=== PATIENT | female | born 1940 | race Caucasian/White ===

== ENCOUNTER → 2018-03-08 06:41 | Outpatient (CLI) | payer MEDICARE, OTHER, SELFPAY ==
[2018-03-08 08:13] LABS: Add Manual Diff / Slide Review NO; Basophils Percent Auto 0.6 % (0-2); Hematocrit 36.7 % (36-46); Hemoglobin 12.6 g/dL (12.0-16.0); Mean Corpuscular HGB Conc 34.4 % (30-36); Mean Corpuscular Hemoglobin 32.6 PG (26-34); Mean Corpuscular Volume 94.7 fL (80-100); Neutrophils Absolute Auto 1900 /uL (3000-5900); Neutrophils Percent Auto 56.4 % (50-75); Platelet Count 178 X10^3/uL (150-400); Red Blood Cell Count 3.87 X10^6/uL (4.0-5.2); Red Cell Distribution Width 12.7 % (11.6-14.8); White Blood Cell Count 3.4 X10^3/uL (4.5-11.0)
[2018-03-08 08:29] LABS: Alanine Aminotransferase 25 IU/L (9-52); Albumin 4.2 g/dL (3.5-5.0); Albumin Globulin Ratio 1.7 (1.0-2.8); Alkaline Phosphatase 34 U/L (38-126); Aspartate Aminotransferase 25 IU/L (14-36); BUN Creatinine Ratio 22.5 (6-22); Bilirubin Total 0.4 mg/dL (0.2-1.3); Blood Urea Nitrogen 18 mg/dL (7-17); Calcium 9.5 mg/dL (8.4-10.2); Carbon Dioxide 29 mmol/L (22-32); Chloride 104 mmol/L (98-107); Cholesterol 149 mg/dL (140-199); Estimated Glomerular Filt Rate > 60.0 mL/min (>60); Globulin 2.5 g/dL (1.7-4.1); Glucose 91 mg/dL (80-110); HDL Cholesterol 65 mg/dL (40-60); HEMOLYSIS < 15 (0-50); LDL Cholesterol Calculated 73 mg/dL (<100); Potassium 4.1 mmol/L (3.4-5.1); Sodium 142 mmol/L (137-145); Total Protein 6.7 g/dL (6.3-8.2); Triglycerides 54 mg/dL (35-150)
[2018-03-08 09:00] LABS: Thyroid Stimulating Hormone 0.82 uIU/mL (0.47-4.68)
== END ==
PROVIDERS: PCP Family Medicine; Visit Provider Family Medicine
DX: E03.9 Hypothyroidism, unspecified (principal); E78.2 Mixed hyperlipidemia
CPT/HCPCS: 36415; 80053; 80061; 84443; 85025

== ENCOUNTER → 2018-03-11 10:55 | Outpatient (CLI) | payer MEDICARE, OTHER, SELFPAY ==
--- NOTE | 2018-03-11 | DI.MG.S_ITS ---
BILATERAL DIGITAL SCREENING MAMMOGRAM 3D/2D WITH CAD: 03/11/2018 CLINICAL: Routine screening. Comparison is made to exams dated: 02/18/2017 mammogram, 02/11/2016 mammogram, and 01/03/2015 mammogram - [facility]. The tissue of both breasts is heterogeneously dense. This may lower the sensitivity of mammography. Current study was also evaluated with a Computer Aided Detection (CAD) system. No significant masses, calcifications, or other findings are seen in either breast. There has been no significant interval change. IMPRESSION: NEGATIVE There is no mammographic evidence of malignancy. A 1 year screening mammogram is recommended. This exam was interpreted at Station ID: [id number]. NOTE: For mammograms, a report in lay terms will be sent to the patient. Approximately 15% of breast malignancies will not be visualized mammographically. In the management of a palpable breast mass, a negative mammogram must not discourage biopsy of a clinically suspicious lesion. Electronically Signed By: Paras henley/dionna:03/11/2018 11:56:26 letter sent: Normal Exam ACR BI-RADS Category 1: Negative [id number]
== END ==
PROVIDERS: PCP Family Medicine; Visit Provider Family Medicine
DX: Z12.31 Encounter for screening mammogram for malignant neoplasm of breast (principal)
CPT/HCPCS: 77063; 77067

== ENCOUNTER → 2018-03-25 17:24 | Outpatient (CLI) | payer MEDICARE, OTHER, SELFPAY ==
--- NOTE | 2018-03-25 17:28 | DI.MRI.S_ITS ---
PROCEDURE: MR HEAD/BRAIN WO CON INDICATIONS: memory loss TECHNIQUE: Non-contrast axial T1 spin echo, axial T2 fast spin echo, sagittal and axial FLAIR, coronal T2 fast spin echo, axial gradient echo, axial diffusion and ADC through the brain. COMPARISON: [facility], MR, BRAIN WITHOUT CONTRAST, 02/05/2012, 15:39. FINDINGS: Image quality: Excellent. CSF spaces: Ventricles appear symmetric in size and shape. Basal cisterns are patent. No extra-axial fluid collections. Brain: No intracranial bleeds or mass effects. There is cerebral volume loss for age. There are periventricular and deep white matter chronic small vessel ischemic changes. Brainstem appears normal. Diffusion-weighted images show no acute ischemic insults. No chronic ischemic insults. Normal intravascular flow voids are present. Skull and face: Calvarial bone marrow is normal in signal. Orbits are normal. Sinuses: Sinuses demonstrate minimal pansinus mucosal thickening. IMPRESSION: 1. No acute intracranial process. 2. Mild to moderate atrophy and chronic microvascular ischemic changes. Dictated by: Melissa Box M.D. on 03/28/2018 at 9:11 Approved by: Melissa Box M.D. on 03/28/2018 at 9:42
== END ==
PROVIDERS: PCP Family Medicine; Visit Provider Family Medicine
DX: R41.3 Other amnesia (principal); G31.9 Degenerative disease of nervous system, unspecified
CPT/HCPCS: 70551

== ENCOUNTER → 2018-05-04 15:52 | Outpatient (CLI) | payer MEDICARE, OTHER, SELFPAY | PROVIDERS: PCP Family Medicine; Visit Provider Obstetrics & Gynecology | DX: R33.9 Retention of urine, unspecified (principal) | CPT/HCPCS: 87086 ==

== ENCOUNTER → 2018-09-15 12:55 | Outpatient (CLI) | payer MEDICARE, OTHER, SELFPAY ==
[2018-09-17 15:03] LABS: Herpes Simplex Virus 1 IGG AB 2.17 index (< 0.90)
[2018-09-19 15:31] LABS: HSV 1 IgM Screen Negative (Negative); HSV 2 IgM Screen Negative (Negative)
== END ==
PROVIDERS: PCP Family Medicine; Visit Provider Obstetrics & Gynecology
DX: N90.89 Other specified noninflammatory disorders of vulva and perineum (principal); R32 Unspecified urinary incontinence
CPT/HCPCS: 36415; 86694; 86695; 86696; 87077; 87086; 87186

== ENCOUNTER → 2018-10-28 12:21 | Outpatient (CLI) | payer MEDICARE, OTHER, SELFPAY ==
[2018-10-28 16:17] LABS: Thyroid Stimulating Hormone 0.59 uIU/mL (0.47-4.68)
== END ==
PROVIDERS: PCP Family Medicine; Visit Provider Family Medicine
DX: E03.9 Hypothyroidism, unspecified (principal)
CPT/HCPCS: 36415; 84443

== ENCOUNTER → 2019-03-06 10:26 | Outpatient (CLI) | payer MEDICARE, OTHER, SELFPAY ==
[2019-03-06 11:06] LABS: Appearance Urine UA CLEAR; Bilirubin Urine UA NEGATIVE (NEGATIVE); Color Urine UA YELLOW; Glucose Urine UA NEGATIVE (Negative); Ketones Urine UA NEGATIVE (NEGATIVE); Leukocyte Esterase Urine UA TRACE (NEGATIVE); Nitrite Urine UA NEGATIVE (Negative); Occult Blood Urine UA TRACE-INTACT (Negative); Protein Urine UA NEGATIVE (Negative); Specific Gravity Urine UA <=1.005 (1.000-1.035); Urobilinogen Urine UA 0.2 E.U./dL (0.2)
[2019-03-06 11:51] LABS: Bacteria Urine Occasional (0-1); Culture Indicated Urine Specimen Cultured; RBC Urine 0-1/HPF (0-5/HPF); Squamous Epithelial Cell Urine 1-5 /HPF (0-5/HPF); WBC Urine 1-5/HPF (0-5/HPF)
== END ==
PROVIDERS: PCP Family Medicine; Visit Provider Obstetrics & Gynecology
DX: N39.0 Urinary tract infection, site not specified (principal); R30.9 Painful micturition, unspecified
CPT/HCPCS: 81001; 87086

== ENCOUNTER → 2019-03-14 16:45 | Outpatient (CLI) | payer MEDICARE, OTHER, SELFPAY ==
--- NOTE | 2019-03-14 | DI.MG.S_ITS ---
BILATERAL DIGITAL SCREENING MAMMOGRAM 3D/2D WITH CAD: 03/14/2019 CLINICAL: Routine screening. Comparison is made to exams dated: 03/11/2018 mammogram, 02/18/2017 mammogram, and 02/11/2016 mammogram - [facility]. The tissue of both breasts is heterogeneously dense. This may lower the sensitivity of mammography. Current study was also evaluated with a Computer Aided Detection (CAD) system. No significant masses, calcifications, or other findings are seen in either breast. There has been no significant interval change. IMPRESSION: NEGATIVE There is no mammographic evidence of malignancy. A 1 year screening mammogram is recommended. This exam was interpreted at Station ID: [id number]. NOTE: For mammograms, a report in lay terms will be sent to the patient. Approximately 15% of breast malignancies will not be visualized mammographically. In the management of a palpable breast mass, a negative mammogram must not discourage biopsy of a clinically suspicious lesion. Electronically Signed By: Brian figueroa/dionna:03/15/2019 08:24:22 letter sent: Normal Exam ACR BI-RADS Category 1: Negative [id number]
== END ==
PROVIDERS: PCP Family Medicine; Visit Provider Family Medicine
DX: Z12.31 Encounter for screening mammogram for malignant neoplasm of breast (principal)
CPT/HCPCS: 77063; 77067

== ENCOUNTER → 2019-04-24 06:59 | Outpatient (CLI) | payer MEDICARE, OTHER, SELFPAY ==
[2019-04-24 07:36] LABS: Add Manual Diff / Slide Review NO; Basophils Absolute Auto 0 /uL (0-100); Basophils Percent Auto 0.6 % (0-2); Eosinophils Absolute Auto 100 /uL (0-450); Eosinophils Percent Auto 1.8 % (2-4); Hematocrit 41.4 % (36-46); Hemoglobin 14.1 g/dL (12.0-16.0); Lymphocytes Absolute Auto 1100 /uL (1100-4500); Lymphocytes Percent Auto 26.7 % (25-40); Mean Corpuscular Hemoglobin 32.5 PG (26-34); Mean Corpuscular Volume 95.7 fL (80-100); Monocytes Absolute Auto 400 /uL (0-900); Monocytes Percent Auto 9.2 % (3-14); Neutrophils Absolute Auto 2500 /uL (1500-7000); Neutrophils Percent Auto 61.7 % (50-75); Platelet Count 179 X10^3/uL (150-400); Red Blood Cell Count 4.33 X10^6/uL (4.0-5.2)
[2019-04-24 07:49] LABS: Alanine Aminotransferase 19 IU/L (<35); Albumin 4.4 g/dL (3.5-5.0); Albumin Globulin Ratio 1.5 (1.0-2.8); Alkaline Phosphatase 49 U/L (38-126); Aspartate Aminotransferase 28 IU/L (14-36); BUN Creatinine Ratio 28.6 (6-22); Bilirubin Total 0.9 mg/dL (0.2-1.3); Blood Urea Nitrogen 20 mg/dL (7-17); Calcium 9.8 mg/dL (8.4-10.2); Carbon Dioxide 31 mmol/L (22-32); Chloride 101 mmol/L (98-107); Cholesterol 215 mg/dL (140-199); Estimated Glomerular Filt Rate > 60.0 mL/min (>60); Globulin 2.9 g/dL (1.7-4.1); Glucose 98 mg/dL (80-110); HDL Cholesterol 74 mg/dL (40-60); HEMOLYSIS < 15 (0-50); LDL Cholesterol Calculated 131 mg/dL (<100); Potassium 4.2 mmol/L (3.4-5.1); Sodium 137 mmol/L (137-145); Total Protein 7.3 g/dL (6.3-8.2); Triglycerides 52 mg/dL (35-150)
== END ==
PROVIDERS: PCP Family Medicine; Visit Provider Family Medicine
DX: Z00.00 Encounter for general adult medical examination without abnormal findings (principal); E78.2 Mixed hyperlipidemia; Z13.220 Encounter for screening for lipoid disorders
CPT/HCPCS: 36415; 80053; 80061; 85025

== ENCOUNTER → 2019-05-18 13:57 | Outpatient (CLI) | payer MEDICARE, OTHER, SELFPAY | PROVIDERS: PCP Family Medicine; Visit Provider Family Medicine | DX: M81.0 Age-related osteoporosis without current pathological fracture (principal); Z78.0 Asymptomatic menopausal state; E07.9 Disorder of thyroid, unspecified; Z82.62 Family history of osteoporosis | CPT/HCPCS: 77080 ==

== ENCOUNTER 2019-05-25 09:44 | Emergency (ER) | payer MEDICARE, OTHER, SELFPAY ==
[2019-05-25] VITALS (14 sets, daily range): BP systolic 111–155; BP diastolic 60–85; PULSE 22–86; RESP 15–23; TEMP 36.2; O2SAT 98–100; BMI 19.1
--- NOTE | 2019-05-25 09:51 | DI.RAD.S_ITS ---
PROCEDURE: XR CHEST 1V INDICATIONS: chest pain TECHNIQUE: One view of the chest was acquired. COMPARISON: [facility], , CHEST 2 VIEW, 09/08/2016, 12:47. FINDINGS: Surgical changes and devices: None. Lungs and pleura: Lungs are clear. No pleural effusions or pneumothorax. Mediastinum: Mediastinal contours appear normal. Heart size is normal. Bones and chest wall: No suspicious bony lesions. Overlying soft tissues appear unremarkable. IMPRESSION: No acute cardiopulmonary disease process. Dictated by: Eunice Gutierrez MD, PhD on 05/25/2019 at 11:03 Approved by: Eunice Gutierrez MD, PhD on 05/25/2019 at 11:04
[2019-05-25 10:05] LABS: Add Manual Diff / Slide Review NO; Basophils Absolute Auto 0 /uL (0-100); Basophils Percent Auto 0.6 % (0-2); Eosinophils Absolute Auto 0 /uL (0-450); Eosinophils Percent Auto 0.9 % (2-4); Hematocrit 42.7 % (36-46); Hemoglobin 14.5 g/dL (12.0-16.0); Lymphocytes Absolute Auto 1200 /uL (1100-4500); Lymphocytes Percent Auto 23.4 % (25-40); Mean Corpuscular Hemoglobin 32.4 PG (26-34); Mean Corpuscular Volume 95.1 fL (80-100); Monocytes Absolute Auto 400 /uL (0-900); Monocytes Percent Auto 8.5 % (3-14); Neutrophils Absolute Auto 3500 /uL (1500-7000); Neutrophils Percent Auto 66.6 % (50-75); Platelet Count 193 X10^3/uL (150-400); Red Blood Cell Count 4.49 X10^6/uL (4.0-5.2); Red Cell Distribution Width 12.4 % (11.6-14.8); White Blood Cell Count 5.2 X10^3/uL (4.5-11.0)
[2019-05-25 10:13] LABS: Prothrombin Time 11.3 SECONDS (10.1-12.7)
[2019-05-25 10:15] LABS: PTT Partial Thromboplastin Tim 32 SECONDS (26.4-36.2)
[2019-05-25 10:17] LABS: Alanine Aminotransferase 19 IU/L (<35); Albumin 4.8 g/dL (3.5-5.0); Albumin Globulin Ratio 1.4 (1.0-2.8); Alkaline Phosphatase 57 U/L (38-126); Aspartate Aminotransferase 32 IU/L (14-36); BUN Creatinine Ratio 21.3 (6-22); Bilirubin Total 0.9 mg/dL (0.2-1.3); Blood Urea Nitrogen 17 mg/dL (7-17); Carbon Dioxide 28 mmol/L (22-32); Chloride 101 mmol/L (98-107); Creatine Kinase 62 U/L (30-135); Estimated Glomerular Filt Rate > 60.0 mL/min (>60); Globulin 3.5 g/dL (1.7-4.1); Glucose 94 mg/dL (80-110); HEMOLYSIS 22 (0-50); Lipase 197 U/L (23-300); Potassium 3.8 mmol/L (3.4-5.1); Sodium 138 mmol/L (137-145); Total Protein 8.3 g/dL (6.3-8.2)
--- NOTE | 2019-05-25 10:17 | PC.NURSE ---
pt states, she had 2nd shot of shingles last week, then developed feeling tired and with left chest tightness and dull . denies other sxs. denies shortness of breath,nausea or vomiting,coughing,uti sxs,trauma.
[2019-05-25 10:28] LABS: Troponin I < 0.012 ng/mL (0.01-0.034)
--- NOTE | 2019-05-25 10:54 | ED_ITS ---
HPI - Chest Pain General Chief Complaint: Chest Pain Stated Complaint: Chest pain. Time Seen by Provider: 05/25/19 09:53 Source: patient Mode of arrival: Ambulatory Limitations: no limitations History of Present Illness HPI narrative: Patient comes emergency department complaining of chest pain for the last 2-3 days. She states it is left-sided and starts and stops randomly. Sometimes it lasts for just a few minutes and other times it lasts for several hours. Patient states that today, she has had a dull sense of chest pain since she woke up around 6:00 a.m. this morning. Patient states that she does not h ave any cardiac history. She has a history of hyperlipidemia but denies diabetes or hypertension. Patient states that she has not been ill with anything recently. No cough or fever. Patient states that she shoveled snow yesterday and did not have any problem with chest pain. She states nothing really makes it better or worse. She states that the pain is dull and low level, but occasionally, she feels a sharp pain in the same area. Patient states that she does have radiation of the discomfort into her neck and occasionally down into her left groin, but that this only lasts for a quick se cond. No other complaints at this time. Related Data Home Medications Medication Instructions Recorded Confirmed cyanocobalamin (vitamin B-12) 500 mcg PO DAILY #0 02/20/16 05/25/19 [Vitamin B-12] Hair,Skin and Nails 2 ea PO DAILY 05/25/19 05/25/19 Turmeric Curcumin 1 cap PO DAILY 05/25/19 05/25/19 calcitonin (salmon) 1 spray INTRANASAL (ALT) DAILY 05/25/19 05/25/19 calcium carbonate [Calcium 600] 600 mg PO DAILY 05/25/19 05/25/19 estradiol 10 mcg VAGINAL 2XW 05/25/19 05/25/19 folic acid 0.8 mg PO DAILY 05/25/19 05/25/19 omega [id number] oil [Fish Oil] 1 cap PO BID 05/25/19 05/25/19 oxybutynin chloride 2.5 mg PO BID 05/25/19 05/25/19 psyllium husk [Metamucil] 0.8 g PO DAILY 05/25/19 05/25/19 raloxifene 60 mg PO DAILY 05/25/19 05/25/19 simvastatin 10 mg PO BEDTIME 05/25/19 05/25/19 Previous Rx's Medication Instructions Recorded levothyroxine 50 mcg tablet 50 mcg PO QAM #90 tab 10/31/18 tolterodine 4 mg capsule,extended 4 mg PO DAILY #90 cap 03/08/19 release 24 hr Allergies Allergy/AdvReac Type Severity Reaction Status Date / Time codeine [CODEINE] Allergy Mild Vomiting Verified 05/25/19 09:52 Review of Systems Constitutional Constitutional: Denies chills, Denies fatigue, Denies fever(s), Denies frequent falls, Denies lethargy and Denies weakness Eyes Eyes: Denies change in vision, Denies eye discharge, Denies irritation and Denies loss of vision ENT Ears, Nose, Mouth, and Throat: Denies change in voice, Denies dizziness, Denies neck pain, Denies sore throat and Denies throat swelling Cardiovascular Cardiovascular: Reports chest pain, Denies irregular heart rhythm, Denies lightheadedness, Denies palpitations, Denies dyspnea, Denies dyspnea on exertion and Denies orthopnea Respiratory Respiratory: Denies cough, Denies dyspnea, Denies dyspnea on exertion and Denies wheezing Gastrointestinal Gastrointestinal: Denies abdominal pain, Denies change in bowel habits, Denies diarrhea, Denies nausea and Denies vomiting Genitourinary Genitourinary: Denies hematuria, Denies flank pain, Denies urinary incontinence and Denies urinary urgency Musculoskeletal Musculoskeletal: Denies back pain, Denies muscle weakness, Denies neck pain, Denies numbness and Denies tingling Integumentary/Breasts Skin/Breast: Denies pruritus, Denies erythema, Denies rash and Denies wounds Neurologic Neurologic: Denies behavioral changes, Denies confusion, Denies dizziness, Denies frequent falls, Denies loss of vision, Denies numbness, Denies tingling and Denies weakness Psychiatric Psychiatric: Denies anxiety, Denies behavioral changes, Denies confusion, Denies depression, Denies homicidal ideation and Denies suicidal ideation Endocrine Endocrine: Denies fatigue, Denies flushing and Denies palpitations Hematologic/Lymphatic Hematologic/Lymphatic: Denies easy bruising Allergic/Immunologic Allergic/Immunologic: Denies urticaria, Denies throat swelling and Denies wheezing Patient History Medical History Broken arm (Resolved ~2001) Chicken pox (Resolved) Foot pain (Chronic 2010) Measles (Resolved) Mumps (Resolved) Osteopenia (Chronic 2001) Osteoporosis (Chronic 2001) Shoulder pain (Chronic 2013) Surgical History History of surgery on arm (Resolved 2010) Status post breast biopsy (Resolved 1986) Family History Father Heart disease Mother No problems noted. Brother No problems noted. Social History Smoking Status: Never smoker Smoking Status: Never smoker Exam Initial Vital Signs Initial Vital Signs: Vital Signs Temperature 97.1 F L 05/25/19 09:52 Pulse Rate 86 05/25/19 09:52 Respiratory Rate 15 05/25/19 09:52 Blood Pressure 155/85 H 05/25/19 09:52 Pulse Oximetry 100 05/25/19 09:52 Const General: cooperative and well developed Nutritional Appearance: well nourished [facility] Head: normocephalic and atraumatic Ears: external ears normal Nose: external nose normal and No nasal discharge Face and sinus: face symmetric and No dry mucous membranes Mouth: oral mucosae normal and moist mucous membranes Teeth and gingiva: dentition normal Eyes General: appearance normal, both eyes and all related structures Eyelids: eyelids normal Conjunctivae: conjunctivae normal Sclera: sclerae normal Pupils: PERRL EOM: EOM intact bilaterally Neck Neck: normal visual inspection, trachea midline, No lymphadenopathy, No midline deformity and No JVD Lymphatic: No lymphedema Chest Chest: normal inspection of the chest Resp Effort & Inspection: normal respiratory effort, able to speak in complete sentences, no respiratory distress and no use of accessory muscles Auscultation: clear to auscultation bilaterally, no rales, no rhonchi and no wheezes Cardio Rate: regular rate Rhythm: regular rhythm Heart Sounds: no click, no gallops, no murmurs and no rubs Pulses: normal peripheral pulses GI Inspection: non-distended Palpation: soft, no hepatosplenomegaly, No guarding, No pulsatile mass and No tender Back/Spine/Pelvis Back: No CVA tenderness Cervical Spine: cervical ROM normal and No pain with cervical ROM Thoracic/Lumbar Spine: thoracic and lumbar spine normal to inspection Skin General: no rashes or lesions noted, No jaundice and No petechiae Neuro General: alert, oriented x3, gait normal and no focal motor deficits Speech: speech normal Extrem General: full ROM, no clubbing, cyanosis or edema, no pedal edema and no calf tenderness Psych Appearance: well kempt Mental Status: mental status grossly normal Attitude: cooperative Thought Content: normal and suicidality Judgment: judgment good Course Course Course Narrative: Patient was worked up with labs, EKG, and chest x-ray, all of which were unremarkable. Patient's repeat troponin was also negative. I felt the patient was stable for discharge home. We've discussed home management of the symptoms, as well as the need for follow-up and potentially, for further evaluation of the chest discomfort with stress test. We've discussed the usual indications for return. Orders Ordered: ED Orders 05/25/19 13:45 Troponin I Stat Discontinued Medications Aspirin (Aspirin Ec) 325 mg PO NOW ONE Stop: 05/25/19 11:00 Last Admin: 05/25/19 11:09 Dose: 325 mg Documented by: JUSTIN Vital Signs Vital signs: Vital Signs - 8 hr 05/25/19 12:00 05/25/19 12:30 05/25/19 13:00 Pulse Rate 73 71 75 Respiratory Rate 21 23 Blood Pressure [Left Arm] Pulse Oximetry 100 100 100 05/25/19 13:18 05/25/19 13:30 05/25/19 13:39 Pulse Rate 69 73 70 Respiratory Rate 18 23 Blood Pressure [Left Arm] Pulse Oximetry 99 99 100 05/25/19 13:40 05/25/19 14:15 05/25/19 14:25 Pulse Rate 71 72 Respiratory Rate 23 21 Blood Pressure [Left Arm] 143/81 H Pulse Oximetry 100 100 MDM - Chest Pain Medical Records Data Attestation: I reviewed the patient's medical records. Lab Data Attestation: I reviewed the patient's lab results. Result diagrams: 05/25/19 09:58 05/25/19 09:58 Labs: Lab Results 05/25/19 05/25/19 05/25/19 Range/Units 09:58 09:58 09:58 WBC 5.2 (4.5-11.0) X10^3/uL RBC 4.49 (4.0-5.2) X10^6/uL Hgb 14.5 (12.0-16.0) g/dL Hct 42.7 (36-46) % MCV 95.1 (80-100) fL MCH 32.4 (26-34) PG MCHC 34.0 (30-36) % RDW 12.4 (11.6-14.8) % Plt Count 193 (150-400) X10^3/uL Neut % (Auto) 66.6 (50-75) % Lymph % (Auto) 23.4 L (25-40) % Harlan % (Auto) 8.5 (3-14) % Eos % (Auto) 0.9 L (2-4) % Baso % (Auto) 0.6 (0-2) % Neut # (Auto) 3500 (6846-9115) /uL Lymph # (Auto) 1200 (5494-1502) /uL Harlan # (Auto) 400 (0-900) /uL Eos # (Auto) 0 (0-450) /uL Baso # (Auto) 0 (0-100) /uL PT 11.3 (10.1-12.7) SECONDS INR 1.0 (0.9-1.3) APTT 32 (26.4-36.2) SECONDS Sodium 138 (137-145) mmol/L Potassium 3.8 (3.4-5.1) mmol/L Chloride 101 (98-107) mmol/L Carbon Dioxide 28 (22-32) mmol/L BUN 17 (7-17) mg/dL Creatinine 0.80 (0.52-1.04) mg/dL Estimated GFR > 60.0 (>60) mL/min BUN/Creatinine Ratio 21.3 (6-22) Glucose 94 (80-110) mg/dL Calcium 10.0 (8.4-10.2) mg/dL Total Bilirubin 0.9 (0.2-1.3) mg/dL AST 32 (14-36) IU/L ALT 19 (<35) IU/L Alkaline Phosphatase 57 (38-126) U/L Total Creatine Kinase 62 (30-135) U/L CK-MB (CK-2) TNP CK-MB (CK-2) Rel Index TNP Troponin I < 0.012 (0.01-0.034) ng/mL Total Protein 8.3 H (6.3-8.2) g/dL Albumin 4.8 (3.5-5.0) g/dL Globulin 3.5 (1.7-4.1) g/dL Albumin/Globulin Ratio 1.4 (1.0-2.8) Lipase 197 (23-300) U/L 05/25/19 Range/Units 13:45 WBC (4.5-11.0) X10^3/uL RBC (4.0-5.2) X10^6/uL Hgb (12.0-16.0) g/dL Hct (36-46) % MCV (80-100) fL MCH (26-34) PG MCHC (30-36) % RDW (11.6-14.8) % Plt Count (150-400) X10^3/uL Neut % (Auto) (50-75) % Lymph % (Auto) (25-40) % Harlan % (Auto) (3-14) % Eos % (Auto) (2-4) % Baso % (Auto) (0-2) % Neut # (Auto) (0366-1565) /uL Lymph # (Auto) (3044-4002) /uL Harlan # (Auto) (0-900) /uL Eos # (Auto) (0-450) /uL Baso # (Auto) (0-100) /uL PT (10.1-12.7) SECONDS INR (0.9-1.3) APTT (26.4-36.2) SECONDS Sodium (137-145) mmol/L Potassium (3.4-5.1) mmol/L Chloride (98-107) mmol/L Carbon Dioxide (22-32) mmol/L BUN (7-17) mg/dL Creatinine (0.52-1.04) mg/dL Estimated GFR (>60) mL/min BUN/Creatinine Ratio (6-22) Glucose (80-110) mg/dL Calcium (8.4-10.2) mg/dL Total Bilirubin (0.2-1.3) mg/dL AST (14-36) IU/L ALT (<35) IU/L Alkaline Phosphatase (38-126) U/L Total Creatine Kinase (30-135) U/L CK-MB (CK-2) CK-MB (CK-2) Rel Index Troponin I < 0.012 (0.01-0.034) ng/mL Total Protein (6.3-8.2) g/dL Albumin (3.5-5.0) g/dL Globulin (1.7-4.1) g/dL Albumin/Globulin Ratio (1.0-2.8) Lipase (23-300) U/L Imaging Data Chest x-ray: Radiologist's Impression: PROCEDURE: XR CHEST 1V INDICATIONS: chest pain TECHNIQUE: One view of the chest was acquired. COMPARISON: [facility], , CHEST 2 VIEW, 09/08/2016, 12:47. FINDINGS: Surgical changes and devices: None. Lungs and pleura: Lungs are clear. No pleural effusions or pneumothorax. Mediastinum: Mediastinal contours appear normal. Heart size is normal. Bones and chest wall: No suspicious bony lesions. Overlying soft tissues appear unremarkable. IMPRESSION: No acute cardiopulmonary disease process. Dictated by: Eunice Gutierrez MD, PhD on 05/25/2019 at 11:03 Approved by: Eunice Gutierrez MD, PhD on 05/25/2019 at 11:04 ECG Data Attestation: I personally reviewed and interpreted this ECG as follows: (See below) Interpretation: Twelve lead EKG performed May 25, 2019 at 9:54 a.m., as follows: Regular ventricular rhythm with a rate of 77 beats per minute [place] interval 175 millisecond QRS duration 82 millisecond QTC interval [address] T wave changes Interpretation: Normal sinus rhythm; possible left atrial enlargement; possible right ventricular conduction delay; septal myocardial infarction of indeterminate age; no signs of acute ischemia; abnormal EKG as interpreted by ED MD. Discharge Plan Departure Patient Disposition: Home Clinical Impression: Chest pain Qualifiers: Chest pain type: unspecified Qualified Code(s): R07.9 - Chest pain, unspecified Discharge Date/Time: 05/25/19 14:56 Instructions: DI for Chest Pain Activity Restrictions/Additional Instructions: Your workup, including labs with 2 sets of cardiac enzymes, is all negative. Your EKG does not show evidence of an acute heart attack. At this point in time, there is no evidence of an emergent cause of her chest pain. However, is very important that you follow-up with your doctor to discuss whether you need to have a stress test done. Prescriptions: No Action cyanocobalamin (vitamin B-12) [Vitamin B-12] 500 MCG tablet 500 mcg PO DAILY Qty: 0 RF: 0 levothyroxine 50 mcg tablet 50 mcg PO QAM Qty: 90 RF: 3 tolterodine 4 mg capsule,extended release 24hr 4 mg PO DAILY Qty: 90 RF: 1 calcium carbonate [Calcium 600] 600 mg calcium (1,500 mg) Tablet 600 mg PO DAILY RF: 0 folic acid 800 mcg Tablet 0.8 mg PO DAILY RF: 0 omega 3-mhp-niq-fish oil [Fish Oil] 1,000 mg (120 mg-180 mg) Capsule 1 cap PO BID RF: 0 psyllium husk [Metamucil] 0.4 gram Capsule 0.8 g PO DAILY RF: 0 Hair,Skin and Nails 2 ea PO DAILY RF: 0 Turmeric Curcumin 1 cap PO DAILY RF: 0 calcitonin (salmon) 200 unit/actuation spray,non-aerosol 1 spray intranasal (ALT) DAILY RF: 0 simvastatin 20 mg tablet 10 mg PO BEDTIME RF: 0 raloxifene 60 mg tablet 60 mg PO DAILY RF: 0 oxybutynin chloride 5 mg tablet 2.5 mg PO BID RF: 0 estradiol 10 mcg tablet 10 mcg vaginal 2XW RF: 0 Referrals: Deyvi Alejandro MD [Primary Care Provider] -
[2019-05-25] MEDS: ASPIRIN EC 325 MG TABLET PO (11:09)
[2019-05-25 14:19] LABS: Troponin I < 0.012 ng/mL (0.01-0.034)
== END 2019-05-25 14:56 | disposition home or self-care (01) ==
PROVIDERS: Emergency Provider Emergency Medicine; PCP Family Medicine
DX: R07.9 Chest pain, unspecified (principal)
CPT/HCPCS: 36415; 71045; 80053; 82550; 83690; 84484; 85025; 85610; 85730; 93005; 99284; 99285

== ENCOUNTER → 2019-06-20 09:42 | Outpatient (CLI) | payer MEDICARE, OTHER, SELFPAY ==
--- NOTE | 2019-06-20 09:46 | DI.CT.S_ITS ---
PROCEDURE: CT ABDOMEN PELVIS W CON INDICATIONS: weight loss TECHNIQUE: After the administration of oral and intravenous contrast, 5 mm thick sections acquired from the diaphragms to the symphysis. 5 mm thick coronal and sagittal reformats were performed. For radiation dose reduction, the following was used: automated exposure control, adjustment of mA and/or kV according to patient size. COMPARISON: None. FINDINGS: Image quality: Excellent. ABDOMEN: Lung bases: Mild bibasilar atelectasis. Heart size is normal. Solid organs: Liver is normal in size and enhancement. Gallbladder is unremarkable. Biliary system is non-dilated. There is a hypodense, irregular mass measuring 1.0 x 1.7 cm within the head neck junction of the pancreas with suggestion of communication with the main pancreatic duct. There is also a 7 mm x 10 mm irregular hypodense mass within the tail the pancreas which also demonstrates possible communication with the main pancreatic duct. The main pancreatic duct is nondilated. Pancreas otherwise enhances homogeneously. Spleen is normal in size and enhancement. No adrenal nodules. Kidneys are normal in size and enhancement, without hydronephrosis. Peritoneum and bowel: There is a moderate amount of fecal material noted throughout the visualized colon. Stomach, small bowel, and colon loops are normal in caliber and wall thickness. No free fluid or air. Nodes and vessels: No retroperitoneal or mesenteric adenopathy. Aorta and inferior vena cava are normal in caliber. Scattered atherosclerotic calcifications of the abdominal aorta and iliac vessels without aneurysmal dilatation. Miscellaneous: No ventral hernias. PELVIS: Genitourinary: Bladder wall thickness is normal. Reproductive organs appear unremarkable as visualized. Miscellaneous: No inguinal hernias or adenopathy. Bones: No acute vertebral body compression fractures. Multilevel spondylitic changes of the lumbar spine with grade 1 anterolisthesis of L4 and L5 secondary to L4 pars defects. Moderate disc space loss and degenerative endplate changes at T11-T12. Degenerative changes of the bilateral hip. There is diffuse osteopenia. Focal sclerotic lesions noted at the anterior L5 vertebral body, posterior L3 vertebral body, posterior right sacral ala, and the distal sacrum. No associated cortical disruption, periosteal reaction, or overlying soft tissue mass. These are likely bone islands. Otherwise, no suspicious osseous lesions. IMPRESSION: 1. There are 2 hypodense mass lesions identified within the pancreas measuring approximately 17 mm near the head neck junction and 10 mm in the pancreatic tail with apparent communication with the main, nondilated pancreatic duct. 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 Recommend further characterization with multiphase MRI of the abdomen (pancreatic mass protocol). 2. A few sclerotic foci identified in the lumbar spine and sacrum likely representing benign bone islands. Attention to these findings on followup imaging can be made. 3. Multilevel spondylosis of the lower thoracic and lumbar spine. 4. Grade 1 anterolisthesis of L4 on L5 secondary to pars defect. Dictated by: Brian Asif M.D. on 06/20/2019 at 18:40 Approved by: Brian Asif M.D. on 06/20/2019 at 19:09
[2019-06-20 10:20] LABS: BUN Creatinine Ratio 23.8 (6-22); Blood Urea Nitrogen 19 mg/dL (7-17); Estimated Glomerular Filt Rate > 60.0 mL/min (>60)
== END ==
PROVIDERS: PCP Family Medicine; Referring Provider Family Medicine; Visit Provider Family Medicine
DX: Z01.812 Encounter for preprocedural laboratory examination (principal); R63.4 Abnormal weight loss; J98.11 Atelectasis; I70.0 Atherosclerosis of aorta; M47.816 Spondylosis without myelopathy or radiculopathy, lumbar region; M43.16 Spondylolisthesis, lumbar region; M47.814 Spondylosis without myelopathy or radiculopathy, thoracic region; K86.9 Disease of pancreas, unspecified
CPT/HCPCS: 36415; 74177; 82565; 84520; Q9967

== ENCOUNTER → 2019-06-28 15:48 | Outpatient (CLI) | payer MEDICARE, OTHER, SELFPAY ==
--- NOTE | 2019-06-28 15:50 | DI.MRI.S_ITS ---
PROCEDURE: MR ABDOMEN WO/W CON INDICATIONS: pancreatic mass TECHNIQUE: Coronal HASTE, axial 2D FLASH in- and [id number]; axial breath-hold T2 FSE with fat saturation from the hepatic dome to the iliac crests. Oblique coronal thin-slice and radial thick slab HASTE through the biliary system. Dynamic axial VIBE during administration of contrast. Post-contrast coronal VIBE or 2D FLASH with fat saturation from the hepatic dome to the iliac crests. Optional diffusion weighted imaging and ADC may be performed. COMPARISON: [facility], CT, CT ABDOMEN PELVIS W CON, 06/20/2019, 11:00. FINDINGS: Image quality: Excellent. Pancreas and biliary system: No biliary distention is found. No pancreatic ductal distention is identified. Within the pancreatic head/neck junction corresponding to the prior CT scanning there is a nonenhancing ovoid structure that shows low T1 and elevated T2 values, measuring 7 mm AP and 1.1 cm transverse (best visualized on post contrast imaging series 18 image 57 and on fluid sensitive T2 axial imaging series 5 image 21. A smaller and more angular similar signal intensity structure is seen at the pancreatic tail, superimposed upon by the expected position of the pancreatic duct in that area. This measures approximately 7 mm in maximal dimension, and is seen on series 18 image 47 postcontrast imaging, and also T2 imaging series 5 image 21. Solid organs: Liver is normal in size and enhancement. Gallbladder appears normal. Spleen is normal in size and enhancement. No adrenal nodules. Kidneys are normal in size and enhancement, without hydronephrosis. Nodes and vessels: No retroperitoneal or mesenteric adenopathy by size criteria. Aorta and inferior vena cava are normal in size. Bowel and peritoneum: Unenhanced bowel loops are normal in caliber throughout. No free fluid. Lung bases: No basal pleural effusions. Heart size is normal. Bones and soft tissues: No ventral hernias. Bone marrow is normal in overall signal. IMPRESSION: The 2 structures within the pancreatic parenchyma identified by recent CT scanning at the head/neck junction and within the pancreatic tail each have fluid rich signal characteristics without contrast enhancement. These may represent sequela of intraductal papillary mucinous neoplasm, side branch type, and followup by MR scanning in 6 months is recommended. Through the liver parenchyma no metastatic disease is suspected. No adenopathy is found. No marrow space lesion is identified. Dictated by: Atnoni Morgan M.D. on 06/29/2019 at 11:10 Approved by: Antoni Morgan M.D. on 06/29/2019 at 11:21
== END ==
PROVIDERS: PCP Family Medicine; Referring Provider Family Medicine; Visit Provider Family Medicine
DX: K86.89 Other specified diseases of pancreas (principal)
CPT/HCPCS: 74183; A9579

== ENCOUNTER → 2019-12-08 06:40 | Outpatient (CLI) | payer MEDICARE, OTHER, SELFPAY ==
[2019-12-08 08:41] LABS: Thyroid Stimulating Hormone 1.21 uIU/mL (0.47-4.68)
== END ==
PROVIDERS: PCP Family Medicine; Referring Provider Family Medicine; Visit Provider Family Medicine
DX: E03.9 Hypothyroidism, unspecified (principal)
CPT/HCPCS: 36415; 84443

== ENCOUNTER → 2020-04-02 10:56 | Outpatient (CLI) | payer MEDICARE, OTHER, SELFPAY ==
--- NOTE | 2020-04-02 | DI.MG.S_ITS ---
BILATERAL DIGITAL SCREENING MAMMOGRAM 3D/2D WITH CAD: 04/02/2020 CLINICAL: Routine screening. Comparison is made to exams dated: 03/14/2019 mammogram, 03/11/2018 mammogram, and 02/18/2017 mammogram - [facility]. The tissue of both breasts is heterogeneously dense. This may lower the sensitivity of mammography. Current study was also evaluated with a Computer Aided Detection (CAD) system. No significant masses, calcifications, or other findings are seen in either breast. There has been no significant interval change. IMPRESSION: NEGATIVE There is no mammographic evidence of malignancy. A 1 year screening mammogram is recommended. This exam was interpreted at Station ID: [id number]. NOTE: For mammograms, a report in lay terms will be sent to the patient. Approximately 15% of breast malignancies will not be visualized mammographically. In the management of a palpable breast mass, a negative mammogram must not discourage biopsy of a clinically suspicious lesion. Electronically Signed By: Lavonne boston/dionna:04/09/2020 11:09:05 letter sent: Normal Exam ACR BI-RADS Category 1: Negative 3341F
== END ==
PROVIDERS: PCP Family Medicine; Referring Provider Family Medicine; Visit Provider Family Medicine
DX: Z12.31 Encounter for screening mammogram for malignant neoplasm of breast (principal)
CPT/HCPCS: 77063; 77067

== ENCOUNTER → 2020-04-16 06:52 | Outpatient (CLI) | payer MEDICARE, OTHER, SELFPAY ==
[2020-04-16 08:28] LABS: Add Manual Diff / Slide Review NO; Basophils Absolute Auto 0 /uL (0-100); Basophils Percent Auto 0.6 % (0-2); Eosinophils Absolute Auto 100 /uL (0-450); Eosinophils Percent Auto 1.4 % (2-4); Hematocrit 40.5 % (36-46); Hemoglobin 13.4 g/dL (12.0-16.0); Lymphocytes Absolute Auto 1100 /uL (1100-4500); Lymphocytes Percent Auto 30.3 % (25-40); Mean Corpuscular Hemoglobin 31.9 PG (26-34); Mean Corpuscular Volume 96.6 fL (80-100); Monocytes Absolute Auto 400 /uL (0-900); Monocytes Percent Auto 9.6 % (3-14); Neutrophils Absolute Auto 2200 /uL (1500-7000); Neutrophils Percent Auto 58.1 % (50-75); Platelet Count 187 X10^3/uL (150-400); Red Blood Cell Count 4.19 X10^6/uL (4.0-5.2); Red Cell Distribution Width 12.7 % (11.6-14.8); White Blood Cell Count 3.7 X10^3/uL (4.5-11.0)
[2020-04-16 08:30] LABS: Alanine Aminotransferase 20 IU/L (<35); Albumin 4.5 g/dL (3.5-5.0); Albumin Globulin Ratio 1.5 (1.0-2.8); Alkaline Phosphatase 49 U/L (38-126); Aspartate Aminotransferase 32 IU/L (14-36); BUN Creatinine Ratio 29.1 (6-22); Bilirubin Total 0.6 mg/dL (0.2-1.3); Blood Urea Nitrogen 23 mg/dL (7-17); Carbon Dioxide 35 mmol/L (22-32); Chloride 102 mmol/L (98-107); Cholesterol 189 mg/dL (140-199); Estimated Glomerular Filt Rate > 60.0 mL/min (>60); Glucose 100 mg/dL (80-110); HDL Cholesterol 84 mg/dL (40-60); HEMOLYSIS < 15 (0-50); LDL Cholesterol Calculated 95 mg/dL (<100); Sodium 138 mmol/L (137-145); Total Protein 7.5 g/dL (6.3-8.2); Triglycerides 51 mg/dL (35-150)
[2020-04-16 08:31] LABS: Potassium 4.8 mmol/L (3.4-5.1)
[2020-04-16 08:55] LABS: Thyroid Stimulating Hormone 1.29 uIU/mL (0.47-4.68)
== END ==
PROVIDERS: PCP Family Medicine; Referring Provider Family Medicine; Visit Provider Family Medicine
DX: Z00.00 Encounter for general adult medical examination without abnormal findings (principal); E78.2 Mixed hyperlipidemia; M81.0 Age-related osteoporosis without current pathological fracture
CPT/HCPCS: 36415; 80053; 80061; 84443; 85025

== ENCOUNTER → 2020-04-30 09:41 | Outpatient (CLI) | payer MEDICARE, OTHER, SELFPAY | PROVIDERS: PCP Family Medicine; Visit Provider Family Medicine | DX: R31.9 Hematuria, unspecified (principal); R32 Unspecified urinary incontinence | CPT/HCPCS: 87086 ==

== ENCOUNTER → 2020-07-29 11:33 | Outpatient (CLI) | payer MEDICARE, OTHER, SELFPAY ==
[2020-07-29 13:34] LABS: COVID19 -Nasal RAPID Negative (Negative)
== END ==
PROVIDERS: PCP Student in an Organized Health Care Education/Training Program; Visit Provider Obstetrics & Gynecology
DX: Z01.812 Encounter for preprocedural laboratory examination (principal); Z20.822 Contact with and (suspected) exposure to COVID-19
CPT/HCPCS: 87635

== ENCOUNTER 2020-07-30 08:35 | Day surgery (SDC) | payer MEDICARE, OTHER, SELFPAY ==
[2020-07-30] VITALS (8 sets, daily range): BP systolic 130–172; BP diastolic 72–91; PULSE 62–73; RESP 13–20; TEMP 36.9–37.6; O2SAT 96–100; BMI 19.4
--- NOTE | 2020-07-30 | PATH_ITS ---
[facility] Accession Number: [id number] . 01 Material submitted: . UTERINE - UTERINE POLYP . 01 Clinical history: . D/C HYSTEROSCOPY W/POSS POLYPECTOMY . 02 Diagnosis: Uterine Polyp: Fragments of polypoid tissue with extensive electrocautery artifact, favor origin from lower uterine segment/endometrium. Endometrial features suggest cystic atrophy. Negative for atypia or malignancy; electrocautery artifact is focally obscuring. MRV 08/01/2020 0917 Local . 02 Electronically signed: . Eliza Oliva MD, Pathologist NPI- [id number] . 01 Gross description: . UTERINE POLYP: Received in formalin are 3 fragment(s) of chowdhury, soft tissue measuring 0.5 x 0.5 x 0.4 cm in aggregate submitted entirely in 1 cassette(s) /CODY 07/31/2020 2300 Local . 02 Pathologist provided ICD-10: N95.0, N85.00, N85.9 . 02 CPT . 972168 Performed at: 01 [facility] [address] [facility], [place], [place] [id number] MD Paras Pond MD Phone: [phone] Performed at: 02 [facility] [address] [place], [place] [id number] MD Marly Juarez MD Phone: [phone]
[2020-07-30] MEDS: LACTATED RINGERS 1,000 ML 42 ML IV (09:18)
--- NOTE | 2020-07-30 09:50 | PM.HP.1 ---
History of Present Illness History of Present Illness Date Patient Seen: 07/30/20 Time Patient Seen: 09:50 Chief complaint: D&C HYSTEROSCOPY W/POSS POLYPECTOMY Narrative: Patient is a 80-year-old who presents for a D&C hysteroscopy with possible polypectomy. Patient has postmenopausal bleeding. Patient History Medical History (Updated 07/15/20 @ 21:09 by Chase Figueroa MD) Broken arm (~2001) Chicken pox Costochondritis Foot pain (2010) History of colon polyps Measles Mumps Osteopenia (2001) Osteoporosis (2001) Shoulder pain (2013) Surgical History History of surgery on arm (2010) Status post breast biopsy (1986) Family & Social History Family History Father Heart disease Mother No problems noted. Brother No problems noted. Social History: household members spouse Tobacco & Substance use: Smoking Status Never smoker alcohol intake never Substance Use Type does not use Meds Home Medications and Allergies Home Medications Medication Instructions Recorded Confirmed Type cyanocobalamin (vitamin B-12) 500 mcg PO DAILY #0 02/20/16 07/30/20 History [Vitamin B-12] tolterodine 4 mg capsule,extended 4 mg PO DAILY #90 cap 03/08/19 07/30/20 Rx release 24 hr calcium carbonate [Calcium 600] 600 mg PO DAILY 05/25/19 07/30/20 History folic acid 0.8 mg PO DAILY 05/25/19 07/30/20 History multivitamin [Hair,Nails and Skin 2 tab PO DAILY 05/25/19 07/30/20 History Vitamin] omega 8-qzv-wvz-fish oil [Fish Oil] 1 cap PO BID 05/25/19 07/30/20 History psyllium husk [Metamucil] 0.8 g PO DAILY 05/25/19 07/30/20 History turmeric mg PO 05/25/19 07/15/20 History estradiol 10 mcg vaginal tablet 10 mcg VAGINAL 2XW #24 tab 02/07/20 07/30/20 Rx donepezil 10 mg tablet 10 mg PO BEDTIME 04/30/20 07/30/20 History oxybutynin chloride 5 mg tablet 2.5 mg PO BID #90 tab 04/30/20 07/30/20 Rx calcitonin (salmon) 200 1 spray INTRANASAL (ALT) DAILY 07/19/20 07/30/20 Rx unit/actuation nasal spray #3.7 ml levothyroxine 50 mcg tablet 50 mcg PO QAM #90 tab 07/19/20 07/30/20 Rx raloxifene 60 mg tablet 60 mg PO DAILY #90 tab 07/19/20 07/30/20 Rx simvastatin 20 mg tablet 10 mg PO BEDTIME #45 tab 07/19/20 07/30/20 Rx clobetasol 1 applic TOPICAL DAILY 07/29/20 07/30/20 History Allergies Allergy/AdvReac Type Severity Reaction Status Date / Time codeine [CODEINE] AdvReac Mild Vomiting Verified 07/30/20 09:13 Exam Vital Signs (past 8 hours): - 07/30/20 09:24 Temperature 99.6 F Pulse Rate 67 Respiratory Rate 13 Blood Pressure 172/82 H Pulse Oximetry 100 Oxygen Delivery Method Room Air Narrative Exam Narrative: HEENT: No thyromegaly, no anterior cervical or supraclavicular lymphadenopathy. Lungs:Clear to auscultation bilaterally, no wheezes. Cardiovascular: Regular rate and rhythm, no murmurs, rubs, or gallops. Abdomen: No scars. No hepatosplenomegaly. No masses palpable. External genitalia: Atrophic Vagina: Atrophic Cervix: Normal Bimanual exam: 6 Week size antevertes uterus. Mobile. Rectal: No masses. Assessment & Plan Assessment & Plan narrative: Assessment: 80-year-old with postmenopausal bleeding and possible endometrial polyp Plan: D&C hysteroscopy with possible polypectomy The risks, benefits, and alternatives to the procedure were explained to the patient. The risks including bleeding, infection, and uterine perforation. She understands these risks and agrees to proceed. A full par Q was held and consent form was signed. COVID-19 COVID-19 status: Negative Result date/Date tested (Pos, Neg/Pending): 07/29/20 Time Spent With Patient Time with patient: less than 15 minutes Quality MIPS - Admit Advanced Care Plan / Current Medications Measures: #47 ? Advanced Care Plan Clinician documentation instruction: document at admission. [] I confirmed that the patient's Advance Care Plan is present, code status is documented, or surrogate decision maker is listed in the patient?s medical record. [SATISFIES MIPS PERFORMANCE] If Yes, Stop Here [] The patient?s Advance Care plan is not present because: (select) [MIPS PERFORMANCE EXCEPTION/EXCLUSION] [] I confirmed today that the patient does not wish or was not able to name a surrogate decision maker or provide an Advance Care Plan. [] Hospice care is currently being provided or has been provided this calendar year [] I did NOT confirm today the presence of an Advance Care Plan or surrogate decision maker documented within the patient's medical record. [DOES NOT SATISFY MIPS PERFORMANCE] #130 - Documentation of Current Medications in the Medical Record Clinician documentation instruction: use macro the first time you see a patient. [] I have utilized all available immediate resources to obtain, update, or review the patient?s current medications. [SATISFIES MIPS PERFORMANCE] If Yes, Stop Here [] The patient is not eligible for medication reconciliation; the patient is in an emergent medical situation where delaying treatment would jeopardize the patient?s health. [MIPS PERFORMANCE EXCEPTION/EXCLUSION] [] I did NOT confirm, update or review the patient's current list of medications today. [DOES NOT SATISFY MIPS PERFORMANCE] MIPS - CL Central Venous Catheter Placement Measure: #76 ? Prevention of Central Venous Catheter (CVC) ? Related Bloodstream Infection Clinician documentation instruction: use macro every time you place a central line. [] All elements of Maximal Sterile Barrier Technique, including hand hygiene, skin prep, and sterile ultrasound technique (if used) were followed. [SATISFIES MIPS PERFORMANCE] If Yes, Stop Here [] If ?No?, the medical reason all elements were NOT used for medical reason [] (ex. emergent condition). [] Maximal Sterile Barrier Technique was not followed, no reason provided [DOES NOT SATISFY MIPS PERFORMANCE] MIPS - DC Heart Failure Measures: #5 - Heart Failure (HF): Angiotensin-Converting Enzyme (DANIKA) Inhibitor or Angiotensin Receptor Ankit (ARB) Therapy for Left Ventricular Systolic Dysfunction (LVSD) and #8 - Heart Failure (HF): Beta-Ankit Therapy for Left Ventricular Systolic Dysfunction (LVSD) Clinician documentation instruction: use macro at every CHF discharge. [] The patient has current or prior documentation of left ventricular ejection fraction (LVEF) less than 40%, or moderate or severely depressed left ventricular systolic function. Answer both: [SATISFIES MIPS PERFORMANCE] [] The patient was prescribed or already taking an Angiotensin-Converting Enzyme (DANIKA) Inhibitor, or Angiotensin Receptor Ankit (ARB). [] The patient was prescribed or already taking a beta-ankit. If Yes to Both, Stop Here [] Patient not prescribed/taking: [MIPS PERFORMANCE EXCEPTION/EXCLUSION] [] DANIKA or ARB for medical/patient/system reason(s) including [] (ex. allergy, intolerance, contraindication) [] Beta-ankit for medical/patient/system reason(s) including [] (ex. allergy, intolerance, contraindication) [] Patient not prescribed/taking: [DOES NOT SATISFY MIPS PERFORMANCE] [] DANIKA or ARB, no reason given [] Beta-ankit, no reason given
--- NOTE | 2020-07-30 09:52 | PM.PREOP ---
Pre-operative Note COVID-19 COVID-19 status: Negative Result date/Date tested (Pos, Neg/Pending): 07/29/20 Interval Note History & Physical reviewed/Exam performed by Physician: Yes Changes to H&P: No H&P completed within 30 days and has changed as indicated here:: 07/30/20
--- NOTE | 2020-07-30 10:15 | SUR.OPER ---
Lithotomy on padded OR bed, head on pillow, arms secured on padded arm boards at <90 degrees abduction. Legs secured in padded yellow fins stirrups.
--- NOTE | 2020-07-30 10:41 | PM.GYNOP.1 ---
Operative Date/Time/Diagnoses Date of procedure: 07/30/20 Time of procedure: 10:42 Pre-op diagnosis: Postmenopausal bleeding Possible endometrial polyp Post-op diagnosis: same Procedure & Clinicians Procedure: Procedures Operation Date: 07/30/20 09:45 Actual Procedures Side Surgeon p D&C Hysteroscopy, Polypectomy Nubia Pierre MD Indications: Postmenopausal bleeding Possible endometrial polyp Surgeon: Nubia Pierre Anesthesia Type: General (LMA) Operative Notes Findings: Five week size anteverted uterus Polyp obscuring of the left fallopian tube ostia Right fallopian tube ostia observed Closure Type: not applicable Specimen(s): endometrial polyp Estimated blood loss (mL): 3 Blood products transfused: none Procedure in detail: After informed consent was obtained, the patient was taken to the operating room where she was placed in the dorsal supine position. After adequate LMA general anesthesia was achieved, she was placed in the dorsal lithotomy position, and prepped and draped in the usual sterile fashion. A time-out was performed. A pediatric bivalve speculum was placed into the vagina. A single-tooth tenaculum was placed on the anterior lip of the cervix. The cervical os was sequentially dilated to the # 8 Hegar dilator. The hysteroscope passed easily into the endometrial cavity. The right fallopian tube ostia was observed. There was a polyp obscuring the left fallopian tube ostia. The hysteroscope was removed. The resectoscope was assembled. The fluid was changed from normal saline to sorbitol. The tubing was cleared of saline. The resectoscope passed easily into the endometrial cavity. The polyp was resected in 2 pieces. The settings were 80 w cut and 60 w cautery. The base of the polyp was cauterized for hemostasis. The resectoscope was removed from the uterus. The single-tooth tenaculum was removed from the anterior lip of the cervix. The pediatric speculum was removed from the vagina. Sponge, lap, and instrument counts were correct x2. The patient tolerated the procedure well, and was taken to PACU in stable condition. Complications: none Post-operative Condition: stable Disposition: PACU Plan for aftercare: Home after recovery
== END 2020-07-30 11:49 | disposition home or self-care (01) ==
PROVIDERS: PCP Student in an Organized Health Care Education/Training Program; Referring Provider Obstetrics & Gynecology; Visit Provider Obstetrics & Gynecology
PROC: 0UDB8ZZ Extraction of Endometrium, Via Natural or Artificial Opening Endoscopic (ICD-10-PCS; CPT 58558; principal; 2020-07-30 09:45)
DX: N84.0 Polyp of corpus uteri (principal)
CPT/HCPCS: 58558; J0330; J1100; J1885; J2405; J2704; J3010

== ENCOUNTER → 2021-04-10 15:41 | Outpatient (CLI) | payer MEDICARE, OTHER, SELFPAY ==
--- NOTE | 2021-04-10 15:43 | DI.MG.S_ITS ---
BILATERAL DIGITAL SCREENING MAMMOGRAM 3D/2D WITH CAD: 04/10/2021 CLINICAL: Routine screening. Comparison is made to exams dated: 04/02/2020 mammogram, 04/02/2020 mammogram, and 03/14/2019 mammogram - [facility]. The tissue of both breasts is heterogeneously dense. This may lower the sensitivity of mammography. Current study was also evaluated with a Computer Aided Detection (CAD) system. There are benign calcifications in both breasts. No significant masses, calcifications, or other findings are seen in either breast. There has been no significant interval change. IMPRESSION: BENIGN There is no mammographic evidence of malignancy. A 1 year screening mammogram is recommended. This exam was interpreted at Station ID: [id number]. NOTE: For mammograms, a report in lay terms will be sent to the patient. Approximately 15% of breast malignancies will not be visualized mammographically. In the management of a palpable breast mass, a negative mammogram must not discourage biopsy of a clinically suspicious lesion. Electronically Signed By: Paras henley/dionna:04/10/2021 16:37:00 letter sent: Normal Exam ACR BI-RADS Category 2: Benign Finding(s) 3342F
== END ==
PROVIDERS: PCP Student in an Organized Health Care Education/Training Program; Referring Provider Student in an Organized Health Care Education/Training Program; Visit Provider Student in an Organized Health Care Education/Training Program
DX: Z12.31 Encounter for screening mammogram for malignant neoplasm of breast (principal)
CPT/HCPCS: 77063; 77067

== ENCOUNTER → 2021-11-27 10:59 | Outpatient (CLI) | payer MEDICARE, OTHER, SELFPAY ==
--- NOTE | 2021-11-27 | DI.MRI.S_ITS ---
PROCEDURE: MR HEAD/BRAIN WO CON INDICATIONS: MEMORY LOSS TECHNIQUE: Non-contrast axial T1 spin echo, axial T2 fast spin echo, sagittal and axial FLAIR, coronal T2 fast spin echo, axial gradient echo, axial diffusion and ADC through the brain. COMPARISON: [facility], MR, MR HEAD/BRAIN WO CON, 03/25/2018, 18:41. FINDINGS: Image quality: Excellent. CSF spaces: Ventricles appear symmetric in size and shape. Basal cisterns are patent. No extra-axial fluid collections. Brain: Moderate global cerebral volume loss, similar to the comparison exam performed 03/25/2018, and without regional or lobar predilection identified. Krqj-vx-vpssiero chronic microvascular ischemic changes. No restricted diffusion to indicate recent ischemia. No unexpected intracranial susceptibility. Major intracranial vascular flow related signal voids are maintained. Skull and face: Calvarial bone marrow is normal in signal. Orbits are normal. Sinuses: Sinuses and mastoids are clear. IMPRESSION: No acute intracranial finding. Similar moderate global cerebral volume loss and mild-moderate chronic microvascular ischemic changes. Dictated by: Mohsen Willson M.D. on 11/27/2021 at 13:41 Approved by: Mohsen Willson M.D. on 11/27/2021 at 13:43
== END ==
PROVIDERS: PCP Internal Medicine; Referring Provider Internal Medicine; Visit Provider Internal Medicine
DX: G31.84 Mild cognitive impairment of uncertain or unknown etiology (principal)
CPT/HCPCS: 70551

== ENCOUNTER → 2021-12-03 12:09 | Outpatient (CLI) | payer MEDICARE, OTHER, SELFPAY | PROVIDERS: PCP Internal Medicine; Referring Provider Internal Medicine; Visit Provider Internal Medicine | DX: Z13.820 Encounter for screening for osteoporosis (principal); Z78.0 Asymptomatic menopausal state; M81.0 Age-related osteoporosis without current pathological fracture | CPT/HCPCS: 77080 ==

== ENCOUNTER → 2022-05-15 11:22 | Outpatient (CLI) | payer MEDICARE, OTHER, SELFPAY ==
--- NOTE | 2022-05-15 | DI.MG.S_ITS ---
BILATERAL DIGITAL SCREENING MAMMOGRAM 3D/2D WITH CAD: 05/15/2022 CLINICAL: Routine screening. Comparison is made to exams dated: 04/10/2021 mammogram, 04/02/2020 mammogram, and 04/02/2020 mammogram - [facility]. Both breasts are heterogeneously dense, which may obscure small masses (category c / 51-75% glandular tissue). Current study was also evaluated with a Computer Aided Detection (CAD) system. There are benign calcifications in both breasts. No significant masses, calcifications, or other findings are seen in either breast. There has been no significant interval change. IMPRESSION: BENIGN There is no mammographic evidence of malignancy. A 1 year screening mammogram is recommended. Based on the Tyrer Cuzick model (a risk assessment model) the patient's lifetime risk is 2.4% and her 10 year risk is 0.0%. According to the ACR, ACS, and NCCN guidelines, an annual breast MRI exam along with mammogram is recommended if the patient's lifetime risk is 20% or greater. This exam was interpreted at Station ID: [id number]. NOTE: For mammograms, a report in lay terms will be sent to the patient. Approximately 15% of breast malignancies will not be visualized mammographically. In the management of a palpable breast mass, a negative mammogram must not discourage biopsy of a clinically suspicious lesion. Electronically Signed By: Brian figueroa/dionna:05/15/2022 19:19:07 letter sent: Normal Exam ACR BI-RADS Category 2: Benign Finding(s) 3342F
== END ==
PROVIDERS: PCP Internal Medicine; Referring Provider Internal Medicine; Visit Provider Internal Medicine
DX: Z12.31 Encounter for screening mammogram for malignant neoplasm of breast (principal)
CPT/HCPCS: 77063; 77067

== ENCOUNTER → 2022-07-09 14:16 | Outpatient (CLI) | payer MEDICARE, OTHER, SELFPAY ==
--- NOTE | 2022-07-09 | DI.CT.S_ITS ---
PROCEDURE: CT SINUS SCREEN WO CON INDICATIONS: Sinus pain TECHNIQUE: Noncontrast 3.0 mm axial images acquired from the frontal sinuses to the mid-sella, with coronal and sagittal reformats. For radiation dose reduction, the following was used: automated exposure control, adjustment of mA and/or kV according to patient size. COMPARISON: None. FINDINGS: Image quality: Excellent. Sinuses: Minimal mucosal thickening is present within the maxillary sinuses bilaterally. Remaining sinuses are clear. No fluid levels. Ostiomeatal Complexes: Ostiomeatal complexes are patent. Miscellaneous: Visualized intra-orbital contents are normal. No luis bullosa or paradoxical turbinate curvature. No nasal septal deviation. IMPRESSION: Minimal maxillary sinus mucosal thickening without fluid levels. Ostiomeatal complexes are patent. Dictated by: Melissa Box M.D. on 07/09/2022 at 16:14 Approved by: Melissa Box M.D. on 07/09/2022 at 16:15
== END ==
PROVIDERS: PCP Internal Medicine; Referring Provider Internal Medicine; Visit Provider Internal Medicine
DX: J34.89 Other specified disorders of nose and nasal sinuses (principal)
CPT/HCPCS: 70486

== ENCOUNTER → 2023-05-28 11:02 | Outpatient (CLI) | payer MEDICARE, OTHER, SELFPAY ==
--- NOTE | 2023-05-28 11:04 | DI.MG.S_ITS ---
BILATERAL DIGITAL SCREENING MAMMOGRAM 3D/2D WITH CAD: 05/28/2023 CLINICAL: Routine screening. Comparison is made to exams dated: 05/15/2022 mammogram, 04/10/2021 mammogram, and 04/02/2020 mammogram - [facility]. Both breasts are heterogeneously dense, which may obscure small masses (category c / 51-75% glandular tissue). Current study was also evaluated with a Computer Aided Detection (CAD) system. There are benign calcifications in both breasts. No significant masses, calcifications, or other findings are seen in either breast. There has been no significant interval change. IMPRESSION: BENIGN There is no mammographic evidence of malignancy. A 1 year screening mammogram is recommended. Based on the Tyrer Cuzick model (a risk assessment model) the patient's lifetime risk is 1.1% and her 10 year risk is 0.0%. According to the ACR, ACS, and NCCN guidelines, an annual breast MRI exam along with mammogram is recommended if the patient's lifetime risk is 20% or greater. This exam was interpreted at Station ID: [id number]. NOTE: For mammograms, a report in lay terms will be sent to the patient. Approximately 15% of breast malignancies will not be visualized mammographically. In the management of a palpable breast mass, a negative mammogram must not discourage biopsy of a clinically suspicious lesion. Electronically Signed By: Brian figueroa/dionna:05/28/2023 17:50:03 letter sent: Normal Exam ACR BI-RADS Category 2: Benign Finding(s) 3342F
== END ==
LOC: MAMMO 11:03
PROVIDERS: PCP Internal Medicine; Referring Provider Internal Medicine; Visit Provider Internal Medicine
DX: Z12.31 Encounter for screening mammogram for malignant neoplasm of breast (principal); R92.333 Mammographic heterogeneous density, bilateral breasts
CPT/HCPCS: 77063; 77067

== ENCOUNTER → 2023-12-23 09:36 | Outpatient (CLI) | payer MEDICARE, OTHER, SELFPAY ==
--- NOTE | 2023-12-23 09:37 | DI.RAD.S_ITS ---
PROCEDURE: XR DEXA AXIAL SKELETON INDICATIONS: OSTEOPOROSIS SCREENING COMPARISON: [facility], CR, XR DEXA AXIAL SKELETON, 12/03/2021, 12:41. FINDINGS: Lumbar Spine, L1 through L3: Bone mineral density 0.722 g/cm2, T score -2.7, osteoporosis, change from previous-0.7%. Left Hip: Bone mineral density 0.506 g/cm2, T score -3.6, osteoporosis, change from previous-3.1%. Left Femoral Neck: Bone mineral density 0.526 g/cm2, T score -2.9, osteoporosis, change from previous-6.4%, significant. Right Hip: Bone mineral density 0.427 g/cm2, T score -4.2, osteoporosis, change from previous-7.4%, significant. Right Femoral Neck: Bone mineral density 0.488 g/cm2, T score -3.2, osteoporosis, change from previous-4.5%. Fracture Risk Calculation (when applicable): Not applicable due to osteoporosis and treatment for osteoporosis. (T score greater or equal to -1.0 to: NORMAL) (T score from -1.1 to -2.4: OSTEOPENIA) (T score less than or equal to -2.5: OSTEOPOROSIS) IMPRESSION: Patient has osteoporosis and is at a high risk of fracture. Statistically significant interval decrease in bone mineral density of the left femoral neck and right hip. Follow-up guidelines as follows: Osteoporosis: Consider a repeat DEXA and Vertebral Fracture Assessment (VFA) exam in 2 years or sooner if medically necessary, to reassess this patient's status. Osteopenia: Consider a repeat DEXA in 2-3 years to reassess this patient's status, or if there is a new clinical indication. Normal: Consider a repeat DEXA in 5 years or sooner, or if there is a new clinical indication. All treatment decisions require clinical judgment and consideration of individual patient factors, including patient preferences, comorbidities, previous drug use, risk factors not captured in the FRAX model (e.g., frailty, falls, vitamin D deficiency, increased bone turnover, interval significant decline in bone density ) and possible under- or over-estimation of fracture risk by FRAX. In addition, the NOF Guide recommends that FDA-approved medical therapies be considered in postmenopausal women and men age >= 50 years with a: * Hip or vertebral (clinical or morphometric) fracture * T-score of <=-2.5 at the spine or hip * Ten-year fracture probability by FRAX of >= 3% for hip fracture or >=20% for major osteoporotic fracture. People with diagnosed cases of osteoporosis or at high risk for fracture should have regular bone mineral density tests. For patients eligible for Medicare, routine testing is allowed once every 2 years. The testing frequency can be increased to one year for patients who have rapidly progressing disease, those who are receiving or discontinuing medical therapy to restore bone mass, or have additional risk factors. Dictated by: Giovanna Bermudez M.D. on 12/24/2023 at 21:55 Approved by: Giovanna Bermudez M.D. on 12/24/2023 at 21:58
== END ==
LOC: RAD 09:36
PROVIDERS: PCP Internal Medicine; Referring Provider Internal Medicine; Visit Provider Internal Medicine
DX: M81.0 Age-related osteoporosis without current pathological fracture (principal)
CPT/HCPCS: 77080

== ENCOUNTER → 2024-01-14 06:52 | Outpatient (CLI) | payer MEDICARE, OTHER, SELFPAY ==
--- NOTE | 2024-01-14 | DI.ECHO.S_ITS ---
[facility] : : [address] : : [place] : : [id number] : : Phone: [phone] Echocardiogram Report + + :Name: MENG GLASGOW Study Date: 01/14/2024 Height: 61 in : :[facility] ReadingLocation: Weight: 101 lb : : Gender: Female BSA: 1.4 m2 : :: 1940 Age: 83 yrs BP: 138/78 mmHg: :Reason For Study: CHEST PAIN : :Ordering Physician: ANTON, : :SORAYA Performed By: Poonam Armijo : :Referring: SORAYA WALTON : + + Interpretation Summary Sinus bradycardia with heart rate 50-55 bpm. Normal LV size and wall thickness. Normal wall motion and LV systolic function. Ejection fraction 60-65%. Stage I diastolic dysfunction. Normal chamber sizes. Mild aortic regurgitation; otherwise no significant valvular abnormalities. No prior study available for comparison. Procedure: A two-dimensional transthoracic echocardiogram with color flow and Doppler was performed. The study quality was technically adequate. There is no prior echocardiogram noted for this patient. The patient was in sinus bradycardia with heart rates between 50-55 bpm during the exam. Left Ventricle: The left ventricle is normal in size. Proximal septal thickening is noted. The ejection fraction is estimated to be 60-65%. Right Ventricle: The right ventricle is normal size. Right ventricular systolic function is mildly reduced. Atria: The left atrial size is normal. Right atrial size is normal. There is no Doppler evidence for an interatrial shunt. Mitral Valve: The mitral valve is normal in structure and function. There is trace mitral regurgitation. Aortic Valve: The aortic valve is trileaflet. The aortic valve opens well. There is no aortic valve stenosis. There is mild aortic regurgitation. Tricuspid Valve: The tricuspid valve is normal in structure and function. There is mild tricuspid regurgitation. The right ventricular systolic pressure is estimated to be at least 26 mmHg based on an estimated right atrial pressure of 3 mm Hg. Pulmonic Valve: The pulmonic valve leaflets are thin and pliable; valve motion is normal. There is no pulmonic valvular regurgitation. Great Vessels: The aortic root is normal size. The dimensions of the ascending aorta are normal. The IVC is of normal diameter and collapses greater than 50% with a sniff. This suggests a low right atrial pressure of 3 mm Hg. Pericardium/ Pleura There is no pericardial effusion. There is no pleural effusion. MMode/2D Measurements & Calculations LVIDd: 3.5 cm LVOT diam: 1.9 cm LVIDs: 2.3 cm Ao root diam: 3.4 cm FS: 34.9 % asc Aorta Diam: 3.1 cm IVSd: 0.74 cm LVPWd: 0.75 cm LV mosley. diameter/BSA (cm/m^2): 2.5 LV sys. diameter/BSA (cm/m^2): 1.6 LA A2 area: 9.0 cm2 RA long axis: 3.8 cm LA A4 area: 8.8 cm2 RA area: 9.3 cm2 LA length (vol): 3.3 cm RA vol: 19.4 ml LA vol: 20.2 ml RA : 13.7 ml/m2 LA vol index: 14.3 ml/m2 IVC diam: 0.62 cm RVD1 (basal): 3.0 cm RVD2 (mid): 2.5 cm TAPSE: 1.3 cm Doppler Measurements & Calculations Ao V2 max: 115.5 cm/sec LVOT Max Joon: 107.8 cm/sec Ao V2 mean: 85.8 cm/sec LV V1 max P.6 mmHg Ao max P.3 mmHg LV V1 VTI: 23.8 cm Ao mean P.2 mmHg COLIN(I,D): 2.8 cm2 Ao V2 VTI: 25.2 cm COLIN(V,D): 2.7 cm2 sev ratio: 0.95 COLIN indexed to BSA (cm^2/m^2): 2.0 AI P1/2t: 859.8 msec AI dec slope: 131.1 cm/sec2 MV E max joon: 54.3 cm/sec TR max joon: 237.6 cm/sec MV A max joon: 79.8 cm/sec TR max P.6 mmHg MV E/A: 0.68 PA V2 max: 62.3 cm/sec Med Peak E' Joon: 4.1 cm/sec PA V2 mean: 45.6 cm/sec E/E' med: 13.2 PA mean P.90 mmHg Lat Peak E' Joon: 5.9 cm/sec PA pr(Accel): 36.2 mmHg E/E' lat: 9.3 E/e' average: 11.3 MV dec time: 0.29 sec SV(LVOT): 69.8 ml Electronically signed by: Renetta Sequeira M.D. on Reading Physician:01/14/2024 09:32 AM
== END ==
LOC: ECHO 06:53
PROVIDERS: PCP Internal Medicine; Referring Provider Internal Medicine; Visit Provider Internal Medicine
DX: R07.9 Chest pain, unspecified (principal); R00.1 Bradycardia, unspecified; I08.2 Rheumatic disorders of both aortic and tricuspid valves
CPT/HCPCS: 93306

== ENCOUNTER → 2024-06-01 11:22 | Outpatient (CLI) | payer MEDICARE, OTHER, SELFPAY ==
--- NOTE | 2024-06-01 11:23 | DI.MG.S_ITS ---
BILATERAL DIGITAL SCREENING MAMMOGRAM 3D/2D WITH CAD: 06/01/2024 CLINICAL: Routine screening. Comparison is made to exams dated: 05/28/2023 mammogram, 05/15/2022 mammogram, and 04/10/2021 mammogram - [facility]. The breasts are heterogeneously dense, which may obscure small masses (category c / 51-75% glandular tissue). Current study was also evaluated with a Computer Aided Detection (CAD) system. There are benign calcifications in both breasts. No significant masses, calcifications, or other findings are seen in either breast. There has been no significant interval change. IMPRESSION: BENIGN There is no mammographic evidence of malignancy. A 1 year screening mammogram is recommended. Based on the Tyrer Cuzick model (a risk assessment model) the patient's lifetime risk is 0.9% and her 10 year risk is 0.0%. According to the ACR, ACS, and NCCN guidelines, an annual breast MRI exam along with mammogram is recommended if the patient's lifetime risk is 20% or greater. This exam was interpreted at Station ID: [id number]. NOTE: For mammograms, a report in lay terms will be sent to the patient. Approximately 15% of breast malignancies will not be visualized mammographically. In the management of a palpable breast mass, a negative mammogram must not discourage biopsy of a clinically suspicious lesion. Electronically Signed By: Brian figueroa/dionna:06/01/2024 16:00:51 letter sent: Normal Exam ACR BI-RADS Category 2: Benign
== END ==
PROVIDERS: PCP Internal Medicine; Referring Provider Internal Medicine; Visit Provider Internal Medicine
DX: Z12.31 Encounter for screening mammogram for malignant neoplasm of breast (principal); R92.333 Mammographic heterogeneous density, bilateral breasts
CPT/HCPCS: 77063; 77067

== ENCOUNTER → 2025-03-06 09:38 | Outpatient (CLI) | payer MEDICARE, OTHER, SELFPAY ==
--- NOTE | 2025-03-06 15:16 | ST.SWALLOW ---
Visit Care Team Role Provider Type Debi Palomo MD Attending Provider Physician Family Provider Primary Care Provider Referring Provider Specialty: Internal Medicine Address: [address] [place] [address], [address], [place], [address] Email: Modified Barium Swallow Study [place] Modified Barium Swallow Study Start: 03/06/25 12:18 Freq: Status: Active Protocol: Document 03/06/25 12:18 LNK (Rec: 03/06/25 12:44 LNK Desktop) Modified Barium Swallow Study Total Time Visit Start Time 10:00 Visit Stop Time 10:45 Total Visit Minutes 45 Referral Referring Physician Debi Palomo MD Reason for Referral dysphagia Setting Setting Outpatient Care Patient Information Identification Type Name,Date of Patient History Pt is an 84 year old female seen this date for a Modified Barium Swallow Study at the referral of Dr. Palomo. Pt's , Jimy, accompanied her to evaluation . Pt with history of dementia, which was diagnosed about 3 years ago, however was able to answer most questions with providing supplemental information. Pt reports her swallow trouble has been going on for about 3 years and state specifically things (foods) bunch up and feels stuck in her throat requiring her to clear her throat/cough. Pt and report she also has difficulties swallowing pills and solids, however has not exhibited any severe choking episodes. Pt reports most of her swallowing trouble is with solids. Subjective Pt was seated in the flouroscopy chair with directions Observations and procedures explained for her. See indicated he understood and agreed to proceed. Lateral View Textures Administered Trials Presented Thin Liquid via Spoon (IDDSI 0),Thin Liquid via Cup ( IDDSI 0),Extremely Thick Liquid via Spoon (IDDSI 4), Regular (IDDSI 7) Barium Tablet Yes The IDDSI Framework Protocol: IDDSI.1 Oral Impairment Source: The Modified Barium Swallow Impairment Profile (MBSImP??) Lip Closure No labial escape Tongue Control Cohesive bolus between tongue to palatal seal During Bolus Hold Initiation of Bolus head in valleculae Pharyngeal Swallow Additional Oral Oral phase of swallowing WNL Impairment *OME and DKS were observed to be WNL. Observations *Dentition natural and in good hygiene *Mastication observed with rotary chew pattern. *Good bolus formation, control and AP transition. *Velopharyngeal closure was WNL. Pharyngeal Impairment Source: The Modified Barium Swallow Impairment Profile (MBSImP??) Soft Palate Trace column of contrast between soft palate & Elevation pharyngeal wall Laryngeal Elevation Comp.sup.move.thyroid cart.w/comp.approx.arytenoids to epiglot petiole Anterior Hyoid Complete anterior movement Excursion Epiglottic Movement Complete inversion Laryngeal Vestibular Incomplete; narrow column air/contrast in laryngeal Closure vestibule Pharyngeal Stripping Present - diminished Wave Pharyngoesophageal Complete distention & complete duration; no obstruction Segment Opening of flow Tongue Base Wide column of contrast/air betwn tongue base & post. Retraction pharyngeal wall Pharyngeal Residue Collection of residue within/on pharyngeal structures Location Diffuse (>3 areas) Additional *Hyolaryngeal elevation/movement and epiglottic Pharyngeal inversion were judged to be adequate. Flash penetration Impairment observed x1 (WNL) Observations *Tongue base retraction and striping of the posterior pharyngeal wall were reduced resulting in pharyngeal residue across trials, especially in the vallecula *Cricopharyngeal opening appeared adequate and did not appear to impede bolus flow. *No laryngeal penetration or aspiration was observed. *Pharyngeal phase WFL for pt's age. A/P View The IDDSI Framework Protocol: IDDSI.1 A/P View Observations Additional A-P Thin barium and calibrated barium tablet provided for Observations AP trials *Retention of barium liquid near sternum - cleared with swallow of water *Retro flow of contrast observed with solid trial ( cookie) *Calibrated barium tablet stopped at lower sternal area needing water to assist in clearing to the stomach *Esophagus slow to close following bolus Clinical Impressions Findings Pt presented with swallowing WFL across all phases. During observation of the esophageal phase, mild retention of liquid, solid and the tablet were noted. All were cleared with additional water. Discussed increasing frequency of liquids during meals to assist in transition to the stomach. The results and recommendations of the MBSS were described to the pt while observing still pictures taken during the MBSS. Pt agreed with the plan No dysphagia was observed. No penetration or aspiration observed Recommendations Diet Comments no diet change recommended Aspiration Precautions Recommended Upright at 90 Degrees,Alternate Liquids/Solids Precautions Treatment Plan Therapy Strategy Alternate Liquids/Solids Recommendations
== END ==
LOC: RAD 09:38
PROVIDERS: Family Provider Internal Medicine; PCP Internal Medicine; Referring Provider Internal Medicine; Visit Provider Internal Medicine
DX: R13.10 Dysphagia, unspecified (principal)
CPT/HCPCS: 74230; 92611

== ENCOUNTER 2025-03-09 09:45 | Outpatient (RCR) | payer MEDICARE, OTHER, SELFPAY ==
--- NOTE | 2025-02-14 16:33 | ST.OPIE ---
Visit Care Team Role Provider Type Debi Palomo MD Attending Provider Physician Family Provider Primary Care Provider Referring Provider Specialty: Internal Medicine Address: [place], [address] Email: Speech-Language Pathology Initial Evaluation ST[facility] SANDBLASTER Clinical Swallow Evaluation Start: 02/14/25 16:07 Freq: Status: Active Protocol: Document 02/14/25 16:08 MA (Rec: 02/14/25 16:33 MA Desktop) Clinical Swallow Evaluation Session Time Visit Start Time 13:45 Visit Stop Time 14:20 Total Visit Minutes 35 Visit Information Visit Number Initial Eval Plan of Care Dates 02/14/25-05/17/25 Insurance Medicare Information Referral Referring Provider Dr. Palomo Reason for Referral Dysphagia Setting Assessment Location Outpatient Care Visit Type Note Type Initial evaluation Next Note Type Next Note Type Treatment Note Patient Information Identification Type Name History Pt is an 84 year old female seen this date for dysphagia evaluation at the referral of Dr. Palomo. Pt , Jimy, accompanied her to evaluation. Pt with history of dementia, which was diagnosed about 3 years ago, however was able to answer most questions with providing supplemental information. Pt reports her swallow trouble has been going on for about 3 years , and state specifically things bunch up and feels stuck in her throat requiring her to clear her throat/ cough. She also reports increase in hoarse vocal quality. Pt reports she has to make sure to chew well and slow. Pt reports she also has some difficulties swallowing pills, however has not exhibited any severe choking episodes. Pt reports most of her swallowing trouble is only with solids. Pt goal for therapy is to improve swallow function. Subjective Pt arrived to evaluation on time with her and Observations was pleasant and compliant with evaluation. She lives with her in [place]. Reported by Patient/Caregiver Other Symptoms Coughing,Difficulty swallowing pills,Difficulty swallowing solids,Food gets stuck Current Diet Regular (IDDSI 7) Baseline Feeding Independent in self-feeding Method The IDDSI Framework Protocol: IDDSI.1 Objective Assessment Mental Status Alert,Responsive,Cooperative Oral Integrity WFL Dentition Within normal limits Lip Function Within normal limits Tongue Function Within normal limits Jaw Function Within normal limits Food and Liquid Trials Position During Upright (90 degrees) Assessment Solid Trials Soft & Bite-sized (IDDSI 6),Regular (IDDSI 7) Administration Type Cup single sip Oral Impairment Within functional limits Oral Phase Comments Pt consumed bruna crackers and diced peaches with about 2 oz of thin water via cup. For solids, she exhibited adequate bite size and rate, good oral acceptance and containment, minimal oral stasis, good bolus formation and control. Pt required mild cues to alternate liquids/solids and reports she probably should drink more water at home. For liquids, she exhibited good oral acceptance and containment, no overt s/s of aspiration. Pt with no overt s/s of aspiration such as coughing or choking with solids or liquids, however towards the end of PO trials she reported globus sensation pointing to her throat near the level of her thyroid notch. Pharyngeal Mildly impaired Impairment Fatigue/Endurance Endurance WNL The IDDSI Framework Protocol: IDDSI.1 Findings Swallowing Function Pharyngeal phase dysphagia Severity of Swallow Mildly impaired Impairment Prognosis Good Based on Family support Recommendations Instrumental Yes Assessment Swallowing Treatment Yes Frequency 1x/week Duration 3 months Recommended Solids Regular (IDDSI 7) Recommended Liquids Thin (IDDSI 0) Other Pt presents with suspected mild pharyngeal phase Recommendations dysphagia with suspected esophageal component. Pt denies history of GERD. ST recommends Pt participate in Modified Barium Swallow study to further analyze stages of the swallow and to guide POC. ST educated Pt and her on recommendations with them verbalizing understanding. Safety Precautions/ Remain upright (90 degrees) during all oral intake, Swallowing Upright position at least 30 minutes after meals,Small Recommendations bites and sips when eating,Slow rate; swallow between bites,Alternate liquids and solids Medication One at a Time Recommendations Education Patient/Caregiver Described results of evaluation,Patient expressed Education understanding of evaluation,Patient expressed agreement with goals & treatment plans,Family/caregivers expressed understanding of evaluation,Family/caregivers expressed agreement with goals & treatment plans, Patient expressed understanding of safety precautions, Family/caregivers expressed understanding of safety precautions,Patient requires further education/training ,Family/caregivers require further education/training Goals Short-term Goals STG 1: Pt will participate in MBS in order to further guide POC. STG 2: Pt will tolerate prescribed diet with <5% overt s/s of aspiration/dysphagia with use of compensatory swallowing strategies and minimal cues. Long-term Goals LTG 1: Patient will consume safest and most efficient least restrictive diet with no clinical s/s of aspiration or dysphagia 100% of the time in order to meet primary nutrition/hydration needs.
--- NOTE | 2025-02-14 16:33 | ST.OPPOC ---
Physical, Occupational & Speech Therapy At [facility] Visit Care Team Role Provider Type Debi Palomo MD Attending Provider Physician Family Provider Primary Care Provider Referring Provider Address: [place], [id number] Speech Pathology Plan of Care Plan of Care Dates 02/14/25-05/17/[address] Palomo Patient History Pt is an 84 year old female seen this date for dysphagia evaluation at the referral of Dr. Palomo. Pt , Jimy, accompanied her to evaluation. Pt with history of dementia, which was diagnosed about 3 years ago, however was able to answer most questions with providing supplemental information. Pt reports her swallow trouble has been going on for about 3 years, and state specifically things bunch up and feels stuck in her throat requiring her to clear her throat/cough. She also reports increase in hoarse vocal quality. Pt reports she has to make sure to chew well and slow. Pt reports she also has some difficulties swallowing pills, however has not exhibited any severe choking episodes. Pt reports most of her swallowing trouble is only with solids. Pt goal for therapy is to improve swallow function. Short-term Goals STG 1: Pt will participate in MBS in order to further guide POC. STG 2: Pt will tolerate prescribed diet with <5% overt s/s of aspiration/dysphagia with use of compensatory swallowing strategies and minimal cues. Long-term Goals LTG 1: Patient will consume safest and most efficient least restrictive diet with no clinical s/s of aspiration or dysphagia 100% of the time in order to meet primary nutrition/ hydration needs. Comment: Electronically Signed by: ALE Murdock 02/14/25 1354 If you are in agreement with this Plan of Care, please return a signed and dated copy. I have reviewed this Plan of Care and certify that the skilled therapy services above are required to meet the patient?s needs. Physician Signature Date Printed Name and Credentials Clinical Instructor Signature Printed Name and Credentials
--- NOTE | 2025-03-09 10:34 | ST.OPDC.SWTH ---
Visit Care Team Role Provider Type Debi Palomo MD Attending Provider Physician Family Provider Primary Care Provider Referring Provider Specialty: Internal Medicine Address: [address] [place] [address], [address], [place], [address] Email: ELECTRICAL CONTINUITY TESTER Dysphagia Treatment ELECTRICAL CONTINUITY TESTER Dysphagia Treatment Start: 03/09/25 10:27 Freq: Status: Active Protocol: Document 03/09/25 10:27 MA (Rec: 03/09/25 10:34 MA Desktop) Dysphagia Treatment Session Time Visit Start Time 09:45 Visit Stop Time 10:15 Total Visit Minutes 30 Visit Information Visit Number 2 Plan of Care Dates 02/14/25-05/17/25 Setting Assessment Location Outpatient Care Patient Information Subjective Pt arrived on time with her who accompanied her Observations to therapy. Pt provided a handout on results from an EGD Pt had had done on 05/06/23, which indicated Mild Schatzki ring and had lower esophagus dilated. Treatment Liquids Trialed Thin (IDDSI 0) Solids Trialed Regular (IDDSI 7) Oral Strategies Upright at 90 degrees,Alternate Liquids/Solids Pharyngeal Sitting Upright (90 deg) Strategies Treatment Activities Education on MBS results The IDDSI Framework Protocol: IDDSI.1 Assessment Patient Response to Excellent Treatment Rehab Potential Excellent Assessment of ST educated Pt and her on MBS results (please Improvement see MBS results document), Oral and pharyngeal phase of the swallow to be WFL, however some retrograde flow in the esophagus. Pt continues to report globus sensation at the suprasternal notch. ST recommends safe swallow strategies, such as alternating liquids/solids and drinking enough fluids during meals to help with clearance. ST also recommends Pt communicate with her PCP in regards to a GI referral and possible repeat EGD . No ST warranted at this time, however ST recommends Pt return to therapy with a referral from PCP if any changes occur. Pt and her verbalized understanding with no further questions. Recommendations Recommendations Continue Current Diet Liquids Order Thin (IDDSI 0) Diet Order Regular (IDDSI 7) Medication One at a Time Recommendations Comments no diet change recommended Treatment Plan Appropriate for No Continued Therapy
== END 2025-03-12 08:50 | disposition home or self-care (01) ==
LOC: SP 09:45
PROVIDERS: Family Provider Internal Medicine; PCP Internal Medicine; Referring Provider Internal Medicine; Visit Provider Internal Medicine
DX: R13.10 Dysphagia, unspecified (principal)
CPT/HCPCS: 92526; 92610